=== PATIENT | male | born 1990 | race Caucasian/White ===

== ENCOUNTER 2019-02-19 12:50 | Emergency (ER) | payer MEDICAID, SELFPAY ==
[2019-02-19 12:54] VITALS: BP 139/88; PULSE 52; RESP 20; TEMP 36.8; O2SAT 98
--- NOTE | 2019-02-19 12:57 | W.ED.GENAD ---
Discharge Plan Disposition Patient Disposition: HOME Condition: Stable Discharge Details Chief Complaint: Orthopedic Clinical Impression: Left ankle sprain Primary Care Provider: Stephenie,Local ED Provider: Brian Vela Home Meds and New Rx's Prescriptions: No Action ibuprofen 800 mg Tablet 800 mg PO PRN PRNRF: 0 Discharge Instructions Instructions: Ankle Sprain (ED) Medical Decision Making 28 yo male comes in after he jumped off the back of his truck 3 days ago and rolled his left ankle. Denies hitting head or loc. HAs had pain since so came here for ane ang. Has swelling and pain along the left lateral malleolus with no pain over metatarsals. Intact sensation and 2+ dp/pt pulses. does have full rom so doubt achilles injury, suspect sprain but will xray to eval for fx xray negative on my read and wet read per Dr. Pérez. Will d/c home and advised f/u with pcp if not better in 2 weeks Differential Diagnosis sprain, strain, fx Imaging Data Radiologic Study: Attestation: I personally reviewed and interpreted this imaging study as follows: Imaging: X-Ray Radiologist's impression: no acute findings HPI General Mode of arrival: ambulatory. Date/Time Provider Initiated Documentation: 02/19/19 12:57. Limitations to Documentation: no limitations. Information obtained by: patient. History of Present Illness 28 year old M presents to the emergency department with the chief complaint of left ankle pain, described as moderate, Quality is described as aching, and is localized to the left and lower extremity. Patient reports no radiation. Patient started experiencing this day(s) (3) and it has been constant. Rest improves symptom(s), Movement worsens symptoms . Patient notes no other symptoms.. Patient did receive the following treatments prior to arrival, NSAID Related Data Home Medications Medication Instructions Recorded Confirmed ibuprofen 800 mg PO PRN PRN 02/19/19 02/19/19 Allergies Allergy/AdvReac Type Severity Reaction Status Date / Time No Known Allergies Allergy Unverified 02/19/19 12:56 General Stated Complaint: Orthopedic DESHAWN: 3 Review of Systems Review of Systems All systems reviewed & are unremarkable except as noted in HPI and below Constitutional Denies chills, Denies fever(s) and Denies weakness ENT Denies change in voice Cardiovascular Denies chest pain and Denies dyspnea Respiratory Denies cough and Denies dyspnea Gastrointestinal Denies abdominal pain, Denies nausea and Denies vomiting Neurologic Denies weakness [facility] Social History Smoking/Tobacco Use Status: Current-Occasional Alcohol Intake: never Drug use: Never Substance use type: does not use Exam Const General: no acute distress Orientation: alert HENMT Head: normal to inspection Ears: external ears normal General nose exam: external nose normal Mouth: moist mucous membranes Eyes General: appearance normal, both eyes and all related structures Neck Neck: normal visual inspection Resp Effort & Inspection: normal respiratory effort and able to speak in complete sentences Cardio Rate: regular rate Skin General skin exam: no rashes or lesions noted Neuro General: alert and oriented x3 Extrem General: normal capillary refill Psych Mental Status: mental status grossly normal Course Vital Signs Temperature 36.8 C 02/19/19 12:54 Pulse 52 L 02/19/19 12:54 Respiratory Rate 20 02/19/19 12:54 Blood Pressure 139/88 02/19/19 12:54 Pulse Oximetry 98 02/19/19 12:54 Temperature 36.8 C 02/19/19 12:54 Temperature Source Temporal Artery Scan 02/19/19 12:54 Pulse 52 L 02/19/19 12:54 Respiratory Rate 20 02/19/19 12:54 Respiratory Effort Non-Labored 02/19/19 12:54 Blood Pressure 139/88 02/19/19 12:54 Pulse Oximetry 98 02/19/19 12:54 Oxygen Delivery Method Room Air 02/19/19 12:54 Oxygen Flow Rate 0 02/19/19 12:54 Pain Level 6 02/19/19 12:54
--- NOTE | 2019-02-19 13:01 | DI.RAD_ITS ---
SYMPTOMS/DIAGNOSIS: PAIN, S/P FALL LEFT ANKLE: Soft tissue swelling is noted over the lateral malleolus. There is no evidence of a fracture or dislocation.
--- NOTE | 2019-02-19 13:02 | ED.GENADUL_ITS ---
Discharge Plan Disposition Patient Disposition: HOME Condition: Stable Discharge Details Chief Complaint: Orthopedic Clinical Impression: Left ankle sprain Primary Care Provider: Stephenie,Local ED Provider: Brian Vela Home Meds and New Rx's Prescriptions: No Action ibuprofen 800 mg Tablet 800 mg PO PRN PRNRF: 0 Discharge Instructions Instructions: Ankle Sprain (ED) Medical Decision Making 28 yo male comes in after he jumped off the back of his truck 3 days ago and rolled his left ankle. Denies hitting head or loc. HAs had pain since so came he re for ane ang. Has swelling and pain along the left lateral malleolus with no pain over metatarsals. Intact sensation and 2+ dp/pt pulses. does have full rom so doubt achilles injury, suspect sprain but will xray to eval for fx xray negative on my read and wet read per Dr. Pérez. Will d/c home and advised f/u with pcp if not better in 2 weeks Differential Diagnosis sprain, strain, fx Imaging Data Radiologic Study: Attestation: I personally reviewed and interpreted this imaging study as f ata: Imaging: X-Ray Radiologist's impression: no acute findings HPI General Mode of arrival: ambulatory . Date/Time Provider Initiated Documentation: 02/19/19 12:57 . Limitations to Documentation: no limitations . Information obtained by: patient . History of Present Illness 28 year old M presents to the emergency department with the chief complaint of left ankle pain, described as moderate, Quality is described as aching, and is localized to the left and lower extremity. Patient reports no radiation. Patient started experiencing this day(s) (3) and it has been constant. Rest improves symptom(s), Movement worsens symptoms . Patient notes no other symptoms.. Patient did receive the following treatments prior to arrival, NSAID Related Data Home Medications Medication Instructions Recorded Confirmed ibuprofen 800 mg PO PRN PRN 02/19/19 02/19/19 Allergies Allergy/AdvReac Type Severity Reaction Status Date / Time No Known Allergies Allergy Unverified 02/19/19 12:56 General Stated Complaint: Orthopedic DESHAWN: 3 Review of Systems Review of Systems All systems reviewed & are unremarkable except as noted in HPI and below Constitutional Denies chills, Denies fever(s) and Denies weakness ENT Denies change in voice Cardiovascular Denies chest pain and Denies dyspnea Respiratory Denies cough and Denies dyspnea Gastrointestinal Denies abdominal pain, Denies nausea and Denies vomiting Neurologic Denies weakness [facility] Social History Smoking/Tobacco Use Status: Current-Occasional Alcohol Intake: never Drug use: Never Substance use type: does not use Exam Const General: no acute distress Orientation: alert HENMT Head: normal to inspection Ears: external ears normal General nose exam: external nose normal Mouth: moist mucous membranes Eyes General: appearance normal, both eyes and all related structures Neck Neck: normal visual inspection Resp Effort & Inspection: normal respiratory effort and able to speak in complete sentences Cardio Rate: regular rate Skin General skin exam: no rashes or lesions noted Neuro General: alert and oriented x3 Extrem General: normal capillary refill Psych Mental Status: mental status grossly normal Course Vital Signs Temperature 36.8 C 02/19/19 12:54 Pulse 52 L 02/19/19 12:54 Respiratory Rate 20 02/19/19 12:54 Blood Pressure 139/88 02/19/19 12:54 Pulse Oximetry 98 02/19/19 12:54 Temperature 36.8 C 02/19/19 12:54 Temperature Source Temporal Artery Scan 02/19/19 12:54 Pulse 52 L 02/19/19 12:54 Respiratory Rate 20 02/19/19 12:54 Respiratory Effort Non-Labored 02/19/19 12:54 Blood Pressure 139/88 02/19/19 12:54 Pulse Oximetry 98 02/19/19 12:54 Oxygen Delivery Method Room Air 02/19/19 12:54 Oxygen Flow Rate 0 02/19/19 12:54 Pain Level 6 02/19/19 12:54
== END 2019-02-19 13:36 | disposition home or self-care (01) ==
PROVIDERS: Emergency Provider Emergency Medicine
DX: S93.402A Sprain of unspecified ligament of left ankle, initial encounter (principal); X50.9XXA Other and unspecified overexertion or strenuous movements or postures, initial encounter
CPT/HCPCS: 99283; 73610; 99282

== ENCOUNTER 2021-01-27 02:06 | Outpatient (CLI) | payer OTHER, SELFPAY ==
--- NOTE | 2021-01-27 | DI.RAD_ITS ---
EXAM: XR SHOULDER LT COMPLETE 2+V CLINICAL HISTORY: [id number],BILAT SHOULDER PAIN. TECHNIQUE: 2D digital imaging was performed. COMPARISON: CR XR SHOULDER RT COMPLETE 2+V from 01/27/2021 FINDINGS: No evidence of fracture or dislocation of the glenohumeral joint. No degenerative changes nor erosio ns. No abnormal soft tissue calcifications. However, there is slight widening of the AC joint which is similar to the opposite-right side. No er osions at the distal clavicle. IMPRESSION: Widened AC joint. Glenohumeral joint appears unremarkable DATA REPOSITORY: RADIATION DOSE DELIVERED:
--- NOTE | 2021-01-27 | DI.RAD_ITS ---
EXAM: XR KNEE LT 3V AP,LAT,MAX CLINICAL HISTORY: [id number],BILAT KNEE PAIN. TECHNIQUE: 2D digital imaging was performed. COMPARISON: No exams were available for comparison FINDINGS: No evidence of fracture. Small amount of increased joint fluid. No degenerative changes. No osteoc hondral defect. Bone density is normal. IMPRESSION: DATA REPOSITORY: RADIATION DOSE DELIVERED:
--- NOTE | 2021-01-27 | DI.RAD_ITS ---
EXAM: XR KNEE RT 3V AP,LAT,MAX CLINICAL HISTORY: [id number],BILAT KNEE PAIN. TECHNIQUE: 2D digital imaging was performed. COMPARISON: CR XR KNEE LT 3V AP,LAT,MAX from 01/27/2021 FINDINGS: No evidence of fracture. There is small amount of increased joint fluid. No degenerative changes no r osseous lesions. Bone density is normal. IMPRESSION: DATA REPOSITORY: RADIATION DOSE DELIVERED:
--- NOTE | 2021-01-27 | DI.RAD_ITS ---
EXAM: XR LUMBAR SPINE COMPLETE CLINICAL HISTORY: [id number],LOW BACK PAIN. TECHNIQUE: 2D digital imaging was performed. COMPARISON: No exams were available for comparison FINDINGS: There is no evidence of fracture nor listhesis nor pars interarticularis defects. The disc spaces ex hibit normal height. No scoliosis. Facet joints unremarkable. Sacroiliac joints unremarkable. No osseous lesions. Bone density normal. IMPRESSION: No significant radiographic findings in the lumbosacral spine. DATA REPOSITORY: RADIATION DOSE DELIVERED:
--- NOTE | 2021-01-27 | DI.RAD_ITS ---
EXAM: XR SHOULDER RT COMPLETE 2+V CLINICAL HISTORY: [id number],BILAT SHOULDER PAIN. TECHNIQUE: 2D digital imaging was performed. COMPARISON: No exams were available for comparison FINDINGS: No evidence of fracture nor dislocation at the glenohumeral joint level. No abnormal soft tissue blane cifications. No degenerative changes. There is slight widening of the AC joint, similar to the opposite side. No rosea is at this level ev ident. IMPRESSION: DATA REPOSITORY: RADIATION DOSE DELIVERED:
== END 2021-01-27 02:26 ==
PROVIDERS: Visit Provider Nurse Practitioner Adult Health
DX: M25.511 Pain in right shoulder (principal); M25.512 Pain in left shoulder; M54.5 Low back pain; M25.561 Pain in right knee; M25.562 Pain in left knee
CPT/HCPCS: 73562; 72110; 73030

== ENCOUNTER 2021-02-15 01:40 | Outpatient (CLI) | payer OTHER, SELFPAY ==
--- NOTE | 2021-02-15 | DI.MRI_ITS ---
EXAM: MR LUMBAR SPINE WO INDICATION: LOW BACK PAIN,TENDERNESS WITH PALPATION OVER L2-4,M54.5,[id number]. COMPARISON: CR XR LUMBAR SPINE COMPLETE from 01/27/2021 TECHNIQUE: MR examination of the lumbosacral spine was performed according to the usual protocol. FINDINGS: No significant bony signal abnormality is seen. Intervertebral discs show normal signal. No signifi cant facet arthropathy identified. The conus medullaris appears intact. There is no evidence of a central canal spinal stenosis, or neural foraminal stenosis, with the excep tion of slight right-sided neural foraminal narrowing at L5-S1 secondary to mild facet hypertrophy an d slight endplate hypertrophy.. No disc herniation is identified in the lumbar region. IMPRESSION: Slight right-sided neural foraminal narrowing at L5-S1. No other significant findings.
== END 2021-02-15 02:00 ==
PROVIDERS: Visit Provider Nurse Practitioner Family
DX: M54.5 Low back pain (principal); M47.817 Spondylosis without myelopathy or radiculopathy, lumbosacral region
CPT/HCPCS: 72148

== ENCOUNTER 2022-08-22 15:53 | Emergency (ER) | payer OTHER, SELFPAY ==
[2022-08-22 16:06] VITALS: BP 125/83; PULSE 92; RESP 20; TEMP 37.5; O2SAT 99
[2022-08-22 17:02] LABS: Influenza A PCR Negative (Negative); Influenza B PCR Negative (Negative); RSV PCR Negative (Negative)
[2022-08-22 17:07] LABS: Source Nasopharynx
[2022-08-22 17:08] LABS: COVID-19 PCR Positive (Negative)
--- NOTE | 2022-08-22 18:26 | ED.GENADUL_ITS ---
Discharge Plan Disposition Patient Disposition: HOME Condition: Stable Discharge Details Clinical Impression: COVID-19 Primary Care Provider: Stephenie,Local ED Provider: Yesenia Abbasi Home Meds and New Rx's Prescriptions: Continued ibuprofen 800 mg Tablet 800 mg PO PRN PRN Discharge Instructions Instructions: COVID-19 (Coronavirus Disease 2019) (ED) Additional Instructions: You tested positive for the COVID-19 virus. Drink plenty of fluids and get plenty of rest. Alternate tylenol and motrin as needed and directed for pain. Follow-up with your primary care doctor in 1 week. Return to the emergency department with any worsening or new concerning symptoms. Discharge Data Discharge Physician: Yesenia Abbasi Medical Decision Making 32-year-old male with a history of chronic back pain on gabapentin presents for fever, sore throat, cough, body aches and headache for the past 4 days. Positive home COVID test last night. He is unvaccinated for Covid. Vitals within normal limits. Temp 99.5 on arrival. Oxygen saturation respiratory rate within normal limits. Lungs clear throughout. Normal ENT exam. No meningeal signs. History and presentation does not appear consistent with PE or ACS. Fluvid obtained on arrival during high volume and acuity and positive. Patient declines paxlovid. Advised to increase fluids and rest. Advised to follow up with the primary care doctor for re-evaluation. Usual and customary return precautions given prior to discharge. Medical Records Medical records reviewed: Yes I reviewed the patient's medical records. Lab Data Lab results reviewed: Yes I reviewed the patient's lab results. Labs: Laboratory Tests Range/Units 08/22/22 16:18 COVID-19 Source Nasopharynx SARS-CoV-2 (PCR) (Negative) Positive A Influenza Type A (PCR) (Negative) Negative Influenza Type B (PCR) (Negative) Negative RSV (PCR) (Negative) Negative HPI General Mode of arrival: ambulatory . Date/Time Provider Initiated Documentation: 08/22/22 16:10 . Limitations to Documentation: no limitations . Information obtained by: patient . HPI Narrative: Patient is a 30-year-old male with a history of chronic back pain on gabapentin who presents with fever, sore throat, body aches, coughing and headache for the past 4 days. Patient states he took a home COVID test which was positive. Patient states he is unvaccinated for COVID. [facility] and [facility] advised to come to [facility] emergency department. Patient denies any significant shortness of breath, vomiting or diarrhea. He states he has been eating and drinking. Related Data Home Medications Medication Instructions Recorded Confirmed ibuprofen 800 mg tablet 800 mg PO PRN PRN 02/19/19 02/19/19 Allergies Allergy/AdvReac Type Severity Reaction Status Date / Time No Known Allergies Allergy Unverified 02/19/19 12:56 General Stated Complaint: Headache DESHAWN: 4 Review of Systems All systems reviewed & are unremarkable except as noted in HPI and below Constitutional Constitutional: Reports as per HPI, Denies chills, Reports fever(s) and Reports headache(s) Eyes Eyes: Denies blurry vision ENT Ears, Nose, Mouth, and Throat: Denies dizziness, Reports headache(s), Reports sore throat and Denies throat swelling Cardiovascular Cardiovascular: Denies chest pain and Denies dyspnea Respiratory Respiratory: Reports cough and Denies dyspnea Gastrointestinal Gastrointestinal: Denies abdominal pain, Denies diarrhea and Denies vomiting Genitourinary Genitourinary: Denies hematuria and Denies dysuria Musculoskeletal Musculoskeletal: Denies back pain and Denies numbness Integumentary/Breasts Skin/Breast: Denies lesions and Denies rash Neurologic Neurologic: Denies dizziness, Reports headache(s), Denies localized weakness and Denies numbness Allergic/Immunologic Allergic/Immunologic: Denies throat swelling PFSH All Active Problems (Updated 08/22/22 @ 18:29 by Yesenia Abbasi DO) COVID-19 (Acute) Medical History (Updated 08/22/22 @ 18:29 by Yesenia Abbasi DO) Chronic back pain Injury of meniscus of knee Surgical History (Updated 08/22/22 @ 18:28 by Yseenia Abbasi DO) No significant past surgical history Social History Smoking/Tobacco Use Status: Current-Occasional Tobacco Type: cigarettes Smoking risk assessment performed?: Yes Alcohol Intake: never Drug use: Never Substance use type: does not use Do you feel safe at home: Yes Do you feel safe in your relationship?: Yes Exam Const General: cooperative, healthy appearing and no acute distress Orientation: alert, awake and oriented x3 HENMT Head: normal to inspection Ears: hearing grossly normal bilaterally, external ears normal and TM's normal bilaterally General nose exam: external nose normal Face and sinus: normal facial exam Throat: posterior oropharynx normal Eyes General: appearance normal, both eyes and all related structures Pupils: PERRL EOM: EOM intact bilaterally Neck Neck: normal visual inspection and No submandibular swelling Lymphatic: no lymphadenopathy noted Chest Chest: normal inspection of the chest and no tenderness Resp Effort & Inspection: normal respiratory effort and able to speak in complete sentences Auscultation: clear to auscultation bilaterally Cardio Rate: regular rate Rhythm: regular rhythm GI Inspection: normal to inspection Palpation: soft, not firm, not rigid and nontender Auscultation: normal bowel sounds Male General Exam: Yes normal external exam Back/Spine/Pelvis Thoracic/Lumbar Spine: thoracic and lumbar spine normal to inspection Pelvis: no pain with anterior-posterior compression Skin General skin exam: no rashes or lesions noted Neuro General: patient alert, patient awake, patient oriented x3, moves all extremities and no meningeal signs Cranial Nerves: CN's II-XI intact bilaterally Cognition: normal cognition Speech: speech normal Motor: muscle tone normal throughout and strength 5/5 throughout Sensory Exam: no sensory deficits noted Extrem General: normal to inspection, full ROM, capillary refill normal, no calf tenderness bilaterally and no edema Psych Appearance: grossly normal Mental Status: mental status grossly normal Speech and Movement: speech and movement normal Affect: normal affect Course Vital Signs Vital signs: Vital Signs Temperature 99.5 F 08/22/22 16:06 Pulse 92 H 08/22/22 16:06 Respiratory Rate 20 08/22/22 16:06 Blood Pressure 125/83 08/22/22 16:06 Pulse Oximetry 99 08/22/22 16:06 Temperature 99.5 F 08/22/22 16:06 Temperature Source Oral 08/22/22 16:06 Pulse 92 H 08/22/22 16:06 Respiratory Rate 20 08/22/22 16:06 Respiratory Effort 08/22/22 16:48 Blood Pressure 125/83 08/22/22 16:06 Pulse Oximetry 99 08/22/22 16:06 Oxygen Delivery Method Room Air 08/22/22 16:06 Oxygen Flow Rate 0 08/22/22 16:06 Pain Level 8 08/22/22 16:48 Lab/Test Results Lab/Test Results: Laboratory Tests Range/Units 08/22/22 16:18 COVID-19 Source Nasopharynx SARS-CoV-2 (PCR) (Negative) Positive A Influenza Type A (PCR) (Negative) Negative Influenza Type B (PCR) (Negative) Negative RSV (PCR) (Negative) Negative
== END 2022-08-22 18:39 | disposition home or self-care (01) ==
PROVIDERS: Emergency Provider Physician Assistant
DX: U07.1 COVID-19 (principal); F17.210 Nicotine dependence, cigarettes, uncomplicated
CPT/HCPCS: 87637; 99282; 99284

== ENCOUNTER 2023-04-09 02:40 | Outpatient (CLI) | payer OTHER, SELFPAY ==
--- NOTE | 2023-04-09 | DI.MRI_ITS ---
Exam(s) MR LUMBAR SPINE WO EXAM: MR LUMBAR SPINE WO CLINICAL HISTORY: RT LUMBAR RADICULOPATHY, [id number]. TECHNIQUE: Multiplanar multisequence MRI of the Lumbar spine was performed. COMPARISON: CR XR LUMBAR SPINE COMPLETE from 01/27/2021 MR MR LUMBAR SPINE WO from 02/15/2021 FINDINGS: Conus medullaris is at normal level. There is no evidence of conus mass nor subjacent clumping of in trathecal nerve roots to suggest arachnoiditis. The distal thecal sac appears unremarkable.There is no evidence of Tarlov intrasacral cysts nor other significant findings within the sacral canal Bones:There are no fractures nor ominous osseous lesions in the lumbar vertebral bodies and visualize d sacrum. There are Modic type 1 and type 2 sub endplate changes at 5 S1 With respect to the individual levels... T12-L1: Unremarkable L1-2: Normal disc height and signal. No disc herniation nor central canal stenosis.No foraminal steno sis L2-3: Normal disc height. No disc herniation nor central canal stenosis.No foraminal stenosis.No face t arthropathy. L3-4: Normal disc height. No disc herniation or central canal stenosis.No foraminal stenosis.No face t arthropathy. L4-5: Normal disc height and signal. No significant disc herniation or central spinal canal stenosis . No foraminal stenosis. No significant facet arthropathy. L5-S1: This level exhibits mild disc space narrowing. Modic type 1 sub endplate marrow edema changes also evident. There is a prominent lateral right disc protrusion at this level which extends adjunct instructor iorly 8 mm and is approximately 2 cm wide. This occupies the right lateral recess and extends into t he right exiting neural foramen, causing moderate foraminal stenosis on the right side at this level. The Modic type 1 marrow changes are confined to the right side at this level. On the opposite-left side there is no disc herniation. Also no foraminal narrowing on the left side. There are no signi ficant facet arthropathy changes. Soft tissues: paraspinal soft tissues appear unremarkable. IMPRESSION: 1. Main finding here is at L5-S1 level where there is now a posterolateral right disc protrusion exte nding posteriorly 8 mm and approximately 20 mm wide, with extension into the exiting right neural for amen, causing an element of foraminal stenosis compounded by asymmetric height loss of the disc space on the right side at this level (there are Modic type 1 and 2 marrow changes confined to the right s canelo at this level/same side is a disc protrusion). The disc herniation occupies part of the right la teral recess at this level. The actual central canal dimensions are within normal limits. 2. Other levels above L5-S1 continue to appear unremarkable. DATA REPOSITORY:
== END 2023-04-09 03:00 ==
PROVIDERS: Visit Provider Nurse Practitioner Family
DX: M99.53 Intervertebral disc stenosis of neural canal of lumbar region (principal); M54.16 Radiculopathy, lumbar region
CPT/HCPCS: 72148

== ENCOUNTER → 2024-01-25 00:57 | Outpatient (CLI) | payer OTHER, SELFPAY ==
--- NOTE | 2024-01-25 12:45 | DI.MRI_ITS ---
Exam(s) MR LUMBAR SPINE WO EXAM: MR LUMBAR SPINE WO CLINICAL HISTORY: [place] AUTH# [id number], SPINAL STENOSIS LUMBAR REGION M48.062,BACK PAIN. TECHNIQUE: Multiplanar multisequence MRI of the Lumbar spine was performed. COMPARISON: CR XR LUMBAR SPINE COMPLETE from 01/27/2021 MR MR LUMBAR SPINE WO from 04/09/2023 FINDINGS: Bones: The last intervertebral disc space is designated the L5/S1 level for the numbering purpose of this ex amination. The vertebral body heights are well maintained. Alignment: Unremarkable. The marrow signal characteristics are unremarkable. Cord: The conus tip ends at the T12 level. It is of normal size and signal intensity. T12-L1: No focal disc herniation is present. No central spinal canal stenosis.No neural foraminal st enosis. L1-2: No focal disc herniation is present. No central spinal canal stenosis.No neural foraminal sten osis. L2-3: No focal disc herniation is present. No central spinal canal stenosis.No neural foraminal lennie nosis. L3-4: No focal disc herniation is present. No central spinal canal stenosis.No neural foraminal lennie nosis. L4-5: No focal disc herniation is present. No central spinal canal stenosis.No neural foraminal sten osis. L5-S1: Mild loss of disc height, disc desiccation and small endplate osteophytes noted eccentric towa rd the right. Degenerative signal changes in the endplates. Previously noted right-sided disc protr usion is no longer present.No focal disc herniation is present. No central spinal canal stenosis.Ri ght neural foraminal narrowing, unchanged. No left neural foraminal narrowing The visualized SI joints and sacrum are unremarkable. Soft tissues: The paraspinal soft tissues are unremarkable. IMPRESSION: Previously noted right sided disc protrusion is no longer present. Endplate osteophytes cause encroa chment into the right neural foramen. DATA REPOSITORY:
== END ==
PROVIDERS: Visit Provider Nurse Practitioner Adult Health
DX: M54.50 Low back pain, unspecified (principal); M48.07 Spinal stenosis, lumbosacral region
CPT/HCPCS: 72148